=== PATIENT | male | born 1960 | race African-American/Black ===

== ENCOUNTER 2017-05-01 14:15 | Emergency (ER) | payer SELFPAY ==
[~2017-05-01] VITALS: Ht 175.3 cm; Wt 90.0 kg
[2017-05-01 14:16] VITALS: BP 132/77; PULSE 92; RESP 20; TEMP 99.7; O2SAT 99
--- NOTE | 2017-05-01 14:37 | PD ---
HPI Chief Complaint: Injury Time Seen by Provider: 14:37 Travel History International Travel<30 days: No Contact w/Intl Traveler<30days: No Traveled to known affect area: No History of Present Illness HPI 56-year-old male presents to the emergency department requesting to see an orthopedic surgeon for a bump in his right wrist that he said he "bumped" his wrist 2 days ago and the bump appeared. He denies decreased range of motion, decreased strength, paresthesias, loss of sensation to the affected extremity. There is no swelling, erythema, edema of the wrist. Denies wrist pain. Says he called his primary care provider and was told to come to the emergency room to see an orthopedic surgeon. Has no other medical complaints. Symptoms are mild in severity. No other modifying factors or associated signs and symptoms. Review of Systems Except as stated in HPI: all other systems reviewed are Neg Physical Exam Narrative GENERAL: Well-nourished, well-developed black male patient, in no acute distress SKIN: Warm and dry. HEAD: Atraumatic. Normocephalic. EYES: Pupils equal and round. No scleral icterus. No injection or drainage. ENT: Mucosa pink and moist. Airway patent. NECK: Trachea midline. CARDIOVASCULAR: Regular rate. RESPIRATORY: No accessory muscle use. GASTROINTESTINAL: Flat. MUSCULOSKELETAL: Right wrist without tenderness on palpation; no erythema or edema; hardened, bump palpated to the fall or aspect of the wrist; the bump is without erythema, warmth to touch; wrist is with full range of motion; sensory intact to all fingers; all fingers with full range of motion; 2+ radial pulse. Right upper extremity supple and nontender 2+ radial pulses and sensory intact and without erythema or edema. No obvious deformities. No clubbing. No cyanosis. NEUROLOGICAL: Awake and alert. Oriented 3. No obvious cranial nerve deficits. Motor grossly within normal limits. Normal speech. PSYCHIATRIC: Appropriate mood and affect; insight and judgment normal. Data Data Last Documented VS Vital Signs Date Time Temp Pulse Resp B/P (MAP) Pulse Ox O2 Delivery O2 Flow Rate FiO2 05/01/17 14:16 99.7 92 20 132/77 (95) 99 Room Air MDM Medical Screen Exam Complete: Yes Emergency Medical Condition: No Differential Diagnosis Ganglionic cyst Narrative Course 56-year-old male requesting to see an orthopedic surgeon for what I suspect is a ganglionic cyst to the volar aspect of his right wrist. He says he "bumped" his wrist 2 days ago on the lump appeared. I offered to do an x-ray of the wrist and the patient declined. Vital signs are stable and the patient is stable for outpatient follow-up and treatment. The patient has no urgent or emergent medical complaints. There is no emergent or urgent medical need at this time. I instructed the patient to follow up with their primary care provider. A medical screening exam was performed: At the time of evaluation the presenting medical condition was determined not to be of an emergent nature. The patient was given the option of receiving additional care, but declined. Patient was given options for additional community resources from which to obtain care. The Patient Has Been advised to seek medical attention for their presenting complaint. The patient has been advised to return to the ER at any time if an emergent condition develops. Primary Impression: Encounter for medical screening examination Condition: Stable Omayra Crockett [facility] May 01, 2017 14:37
== END 2017-05-01 14:50 | disposition left against medical advice (07) ==
LOC: NEPK 14:15
DX: M67.431 Ganglion, right wrist (principal)
CPT/HCPCS: 99281